=== PATIENT | male | born 1955 | race Caucasian/White ===

== ENCOUNTER 2017-08-17 16:00 | Outpatient (RCR) | payer BC ==
[~2017-08-17 16:00] MED LIST: INDERAL 10MG10 MG PO; MOMETASONE; NORCO 325 MG-51 TAB PO; PERINDOPRIL PO; PRILOSEC 20MG20 MG PO
== END 2017-09-15 09:57 | disposition still patient (30) ==
LOC: WSOT 16:00
DX: G56.21 Lesion of ulnar nerve, right upper limb (principal); R20.2 Paresthesia of skin; R53.1 Weakness; R20.8 Other disturbances of skin sensation

== ENCOUNTER → 2020-05-13 | Outpatient (CLI) | payer BC | LOC: ZCOL.LAB 15:58 | DX: U07.1 COVID-19 (principal) ==

== ENCOUNTER 2020-05-19 03:51 | Emergency (ER) | payer BC ==
[~2020-05-19] VITALS: Ht 172.7 cm; Wt 81.8 kg
[2020-05-19 04:51] LABS: BILIRUBIN,TOTAL 0.7 mg/dL (0.0-1.0); CALCIUM 9.3 mg/dL (8.4-10.2); CREATININE, serum 0.8 (0.66-1.25); POTASSIUM 3.7 mmol/L (3.4-5.0); TOTAL PROTEIN 7.7 gm/dL (6.4-8.2)
[2020-05-19 05:01] LABS: BASO % 0.2 % (0.0-2.0); GRAN # 3.4 (1.4-6.5); GRAN % 69.4 % (42.2-75.2); HEMATOCRIT 43.7 % (42.0-52.0); HEMOGLOBIN 15.4 g/dl (13.5-18.0); LYMPH % 19.8 % (20.0-51.0); MEAN CELL VOLUME 97 fl (80.0-100.0); MEAN CORPUSCULAR HEMOGLOBIN 34 pg (27.0-31.0); MEAN CORPUSCULAR HGB CONC 35 g/dl (33.0-37.0); MEAN PLATELET VOLUME 9.6 fl (7.4-10.4); MONO # 0.5 (0.1-0.6); MONO % 9.8 % (1.7-9.3); PLATELET COUNT 176 K/mm3 (130-400); RED BLOOD COUNT 4.49 M/mm3 (4.20-5.60); REDCELL DISTRIBUTION WIDTH-CV 12.6 % (11.5-14.5)
[2020-05-19 05:21] LABS: ARTERIAL BLD GAS O2 SATURATION 93.6 % (92-100); ARTERIAL BLD GAS TCO2 CT 19.1; ARTERIAL BLOOD GAS BASE EXCESS -2.8 (-2-2); ARTERIAL BLOOD GAS HCO3 18.3 meq/L (22-26); ARTERIAL BLOOD GAS PCO2 24.6 mmHg (35-45); ARTERIAL BLOOD GAS PO2 65.9 mmHg (80-100); ARTERIAL BLOOD GAS pH 7.49 (7.35-7.45)
[2020-05-19 06:04] VITALS: BP 101/53; PULSE 74; TEMP 99.9
== END 2020-05-19 06:00 | disposition short-term general hospital (02) ==
LOC: COL.ER 03:51
PROVIDERS: Emergency Medicine
DX: U07.1 COVID-19 (principal); R50.9 Fever, unspecified; R07.9 Chest pain, unspecified; K21.9 Gastro-esophageal reflux disease without esophagitis; I10 Essential (primary) hypertension
CPT/HCPCS: J7030